=== PATIENT | male | born 1980 | race Two or more races ===

== ENCOUNTER 2024-06-25 14:55 | Emergency (ER) | payer OTHER ==
[~2024-06-25] VITALS: Ht 167.6 cm; Wt 77.1 kg
[2024-06-25] MEDS ORDERED: VANCOMYCIN HCL 1,000 MG VIAL IV ONE (17:00)
[2024-06-25] MEDS ORDERED: KETOROLAC TROMETHAMINE 30 MG VIAL IV ONE (17:00)
[2024-06-25] MEDS ORDERED: 0.9 % SODIUM CHLORIDE 500 ML IV ONE (17:00)
[2024-06-25] MEDS ORDERED: KETOROLAC TROMETHAMINE 30 MG VIAL ONE (17:14)
[2024-06-25] MEDS ORDERED: VANCOMYCIN HCL 1,000 MG VIAL ONE (17:15)
[2024-06-25 17:45] LABS: HEMATOCRIT 39.9 % (39.0-48.0); MEAN CELL VOLUME 80.7 fL (80.0-100.00); MEAN CORPUSCULAR HEMOGLOBIN 28.3 pg (27.00-32.0); MEAN CORPUSCULAR HGB CONC 35.1 g/dl (32.0-36.0); PLATELET COUNT 234 K/uL (150-450); RED BLOOD COUNT 4.94 M/uL (4.00-6.00); RED CELL DISTRIBUTION WIDTH 14.5 % (11.5-14.5)
[2024-06-25 17:48] LABS: ERYTHROCYTE SEDIMENTATION RATE 50 mm/hr
[2024-06-25 18:00] LABS: PH,URINE 5.5 (5.0-8.0); URINE APPEARANCE Clear; URINE BILIRRUBIN Negative (NEGATIVE); URINE BLOOD Negative; URINE COLOR Yellow; URINE GLUCOSE Negative (NEGATIVE); URINE KETONE Negative (NEGATIVE); URINE LEUKOCYTE Negative; URINE NITRATE Negative; URINE PROTEIN Negative (NEGATIVE); URINE UROBILINOGEN 0.2 E.U./dl
[2024-06-25 18:08] LABS: ALBUMIN 4.3 gm/dL (3.4-5.0); BILIRUBIN TOTAL 0.56 mg/dL (0.3-1.2); CALCIUM 9.7 mg/dL (8.5-10.1); CREATININE SERUM 1.07 mg/dL (0.70-1.30); GFR 75.08; GLOBULINA 4.4 G/DL (2.4-3.5); POTASSIUM 4.27 mEq/L (3.5-5.1); TOTAL PROTEIN 8.7 gm/dL (6.4-8.2)
[2024-06-25 18:15] LABS: INR 1.01; PARTIAL THROMBOPLASTIN TIME 29.6 SECONDS (22.0-34.0)
[2024-06-25 18:26] LABS: URINE BACTERIA 0 uL (0.0-1933); URINE EPITHELIAL CELLS 0.3 uL (0.0-38.8); URINE RBC 1.3 uL (0.0-20.8); URINE WBC 0.4 uL (0.0-23.2)
[2024-06-26] MEDS ORDERED: OxyCODONE HCL/APAP UD (PERCOCET) PO STA (02:52)
[2024-06-26 06:49] VITALS: BP 147/85; O2SAT 99
== END 2024-06-26 06:50 | disposition designated cancer center or children's hospital (05) ==
LOC: ER 14:55
PROVIDERS: Nurse Practitioner Family
DX: L02.31 Cutaneous abscess of buttock (principal); L02.511 Cutaneous abscess of right hand